=== PATIENT | female | born 1960 | race Caucasian/White ===

== ENCOUNTER → 2019-05-11 | Outpatient (CLI) | payer MEDICARE, OTHER ==
--- NOTE | 2019-05-11 11:46 | RADIOLOGY REPORT (SQ) ---
EXAM DESCRIPTION: MRI LT UPPER JOINT WITHOUT COMPLETED DATE/TIME: 05/11/2019 11:32 am REASON FOR STUDY: M25.512 PAIN IN LEFT SHOULDER M25.512 PAIN IN LEFT SHOULDER COMPARISON: None. TECHNIQUE: Non arthrogram MRI of the left shoulder images acquired and stored on PACS. Multiplanar i maging to include fat sensitive sequences such as T1, water sensitive sequences such as FST2/STIR, ca rtilage sensitive sequences such as FSPD/gradient-echo sequences. LIMITATIONS: None. FINDINGS: BONE MARROW AND CORTEX: No worrisome bone lesions or marrow replacement. No occult fractur es. JOINT OR BURSAL EFFUSION: Small amount of fluid in the subacromial/subdeltoid bursa from bursitis and small full-thickness supraspinatus tear GLENO-HUMERAL ARTICULATION: Normal articulation. No subluxation. No cystic change. No osteophytes or cartilage loss. ACROMION AND AC JOINT: Type 2 acromion with mild acromioclavicular joint hypertrophy narrowing the s ubacromial space on sagittal image 8 ROTATOR CUFF AND INTERVAL: Tendinopathy with tiny full-thickness tear posterior edge distal supraspin atus tendon, best shown on sagittal images 3-6 and coronal images 13-16. Minimal undersurface tendin opathy remainder of the supraspinatus tendon. Subscapularis, infraspinatus tendons are intact. No rotator interval tear. No rotator interval thickening to suggest adhesive capsulitis. LABRUM AND BICEPS LABRAL COMPLEX: Superior labral tear on axial images 6-8. Intra-articular long h ead biceps tendon intact. REMAINDER OF LABRUM AND IGHL : No gross tear or paralabral cyst formation. Labral evaluation is less than optimal without joint distention. No thickening of IGHL to suggest adhesive capsulitis. PERIARTICULAR AND ADJACENT SOFT TISSUES: No masses or abnormal nodes. OTHER: No other significant finding. IMPRESSION: Small full-thickness tear posterior edge supraspinatus tendon Superior labral tear without paralabral cyst Mild acromioclavicular joint hypertrophy with narrowing of the subacromial space TECHNICAL DOCUMENTATION: JOB ID: [id number] 2010 [employer]- All Rights Reserved Reading location - IP/workstation name: [email or web address]
== END ==
LOC: RAD 10:40
PROVIDERS: ATTEND Physician Assistant
DX: M25.512 Pain in left shoulder (principal)